=== PATIENT | female | born 1960 | race Caucasian/White ===

== ENCOUNTER 2018-05-02 06:17 | Day surgery (SDC) | payer OTHER | END 2018-05-02 11:10 | disposition home or self-care (01) | LOC: GIL 06:17 | DX: K21.9 Gastro-esophageal reflux disease without esophagitis (principal); K52.9 Noninfective gastroenteritis and colitis, unspecified; K29.70 Gastritis, unspecified, without bleeding; K64.8 Other hemorrhoids; K31.7 Polyp of stomach and duodenum | CPT/HCPCS: 43239; 88305; 88312 ==